=== PATIENT | female | born 1965 | race African-American/Black ===

== ENCOUNTER 2016-05-15 01:28 | Emergency (ER) | payer MEDICAID ==
[~2016-05-15] VITALS: Ht 165.1 cm; Wt 66.5 kg
[2016-05-15] MEDS ORDERED: METOCLOPRAMIDE HCL 10MG/2ML VIAL IV ONE (04:30)
[2016-05-15] MEDS ORDERED: KETOROLAC 30MG/ML VIAL IV ONE (04:30)
[2016-05-15] MEDS ORDERED: DIPHENHYDRAMINE 50MG/ML VIAL IV ONE (04:30)
[2016-05-15] MEDS ORDERED: SODIUM CHLORIDE 0.9% 1,000 ML IV ONE (05:30)
[2016-05-15 05:42] LABS: CLARITY URINE CLEAR (CLEAR); COLOR URINE DARK YELLOW (YELLOW); GLUCOSE URINE NEGATIVE (NEGATIVE); KETONES URINE TRACE (NEGATIVE); LEUKOCYTE ESTERASE URINE NEGATIVE (NEGATIVE); NITRITE URINE NEGATIVE (NEGATIVE); OCCULT BLOOD URINE 2+ (NEGATIVE); PH URINE 5.5 (4.5-8.0); PROTEIN URINE TRACE (NEGATIVE); SPECIFIC GRAVITY URINE 1.025 (1.005-1.030)
[2016-05-15 06:02] LABS: SQUAMOUS EPITHELIAL CELL URINE 1+ /lpf (RARE/1+)
[2016-05-15 06:04] LABS: BACTERIA URINE NONE SEEN; RBC URINE 0-2 /hpf (0-2); WBC URINE 0-2 /hpf (0-2)
[2016-05-15 12:33] VITALS: BP 100/62
== END 2016-05-16 09:50 | disposition home or self-care (01) ==
LOC: ER 01:28
DX: R51 Headache (principal); R10.31 Right lower quadrant pain; E11.9 Type 2 diabetes mellitus without complications; J44.9 Chronic obstructive pulmonary disease, unspecified; D86.9 Sarcoidosis, unspecified; F17.210 Nicotine dependence, cigarettes, uncomplicated; Z59.0 Homelessness
CPT/HCPCS: 70450; 81001; 81025; 82962; 96361; 96374; 96375; 99285; J1200; J1885; J2765; Z7610; J7030